=== PATIENT | female | born 1960 | race Caucasian/White ===

== ENCOUNTER → 2016-12-22 | Outpatient (CLI) | payer BC ==
[2016-12-22 14:00] LABS: RHEUMATOID FACTOR < 10.0 U/mL (0-15); THYROID STIMULATING HORMONE 0.046 uIu/ml (0.300-4.500)
[2016-12-22 14:10] LABS: LYME DISEASE AB IGG NEG (NEG); LYME DISEASE AB IGM NEG (NEG)
== END | disposition home or self-care (01) ==
LOC: C.LABMFLN 09:41
PROVIDERS: ATTEND Family Medicine
DX: E03.9 Hypothyroidism, unspecified (principal); M79.606 Pain in leg, unspecified